=== PATIENT | male | born 1975 | race Hispanic/Latino ===

== ENCOUNTER 2016-12-15 18:37 | Emergency (ER) | payer BC ==
[~2016-12-15] VITALS: Ht 165.1 cm; Wt 71.8 kg
[2016-12-15 18:37] VITALS: BP 137/88
[2016-12-15] MEDS ORDERED: ASPI1TAB PO (18:51)
[2016-12-15] MEDS ORDERED: PANT40TA2 PO (18:51)
[2016-12-15] MEDS ORDERED: ATOR80TA59 PO (18:51)
[2016-12-15] MEDS ORDERED: ATEN50TA2 PO (18:51)
[2016-12-15] MEDS ORDERED: NAPR500T3 PO (21:00)
--- NOTE | 2016-12-16 01:14 | REP ---
Clinical: Trauma. Technique: AP, lateral, bilateral oblique views. Findings: Lateral swelling consistent with inversion injury. No acute fracture or dislocation. Joint spaces and ankle mortise are intact. Lateral view best demonstrates large retrocalcaneal heal spur. Impression: Lateral swelling. No acute fracture or dislocation. Signed by Brooks Nielson MD 12/16/2016 01:06 A
== END 2016-12-15 21:20 | disposition home or self-care (01) ==
LOC: M ED 18:37
DX: S99.912A Unspecified injury of left ankle, initial encounter (principal); X50.1XXA Overexertion from prolonged static or awkward postures, initial encounter; Y92.89 Other specified places as the place of occurrence of the external cause; Y93.67 Activity, basketball; Y99.9 Unspecified external cause status

== ENCOUNTER 2017-04-20 11:41 | Emergency (ER) | payer BC, OTHER ==
[~2017-04-20] VITALS: Ht 165.1 cm; Wt 75.5 kg
[~2017-04-20 11:41] MED LIST: ASPI1TAB PO; ATEN50TA2 PO; ATOR80TA59 PO; NAPR500T3 PO; PANT40TA2 PO
[2017-04-20] MEDS ORDERED: IMIT100T PO (11:50)
[2017-04-20] MEDS ORDERED: LABETALOL HCL 100 MG/20 ML VIAL IV STA (12:45)
[2017-04-20] MEDS ORDERED: KETOROLAC 30 MG/ML VIAL (J1885) IV ONE (12:45)
[2017-04-20] MEDS ORDERED: ATENOLOL 50 MG TAB PO ONE (12:45)
[2017-04-20] MEDS ORDERED: diphenhydrAMINE INJ 50MG/ML VIAL (J1200) IV STA (12:45)
[2017-04-20] MEDS ORDERED: NS 1,000 ML IV ONE (12:45)
[2017-04-20] MEDS ORDERED: METOCLOPRAMIDE INJ 10MG/2ML VIAL (J2765) IV ONE (12:45)
[2017-04-20 13:07] VITALS: BP 160/99
[2017-04-20] MEDS ORDERED: ATEN50TA2 PO (14:18)
[2017-04-20 14:36] VITALS: BP 156/98
== END 2017-04-20 14:38 | disposition home or self-care (01) ==
LOC: M ED 11:41
DX: G43.909 Migraine, unspecified, not intractable, without status migrainosus (principal); I10 Essential (primary) hypertension
CPT/HCPCS: 96361; 96374; 96375; 99284; J1200; J1885; J2765

== ENCOUNTER → 2019-12-18 | Outpatient (CLI) | payer BC ==
[~2019-12-18] MED LIST changes: -ASPI1TAB PO; +ASPI81TA26 PO; +IMIT100T PO; +NAPR-885 PO; -NAPR500T3 PO; -PANT40TA2 PO; +PANT40TA29 PO
== END ==
LOC: M LABSMTC 11:08
PROVIDERS: ATTEND Family Medicine
DX: Z11.59 Encounter for screening for other viral diseases (principal)
CPT/HCPCS: C9803; U0003